=== PATIENT | male | born 1950 | race Caucasian/White ===

== ENCOUNTER 2024-03-31 11:18 | Emergency (ER) | payer MEDICARE, BC | END 2024-03-31 12:10 | disposition home or self-care (01) | LOC: JD.ED 11:18 | DX: R21 Rash and other nonspecific skin eruption (principal) | CPT/HCPCS: 99282 ==

== ENCOUNTER 2024-09-28 08:47 | Day surgery (SDC) | payer MEDICARE, BC ==
[~2024-09-28 08:47] MED LIST: Sodium Chloride 0.9% 10 ML Syringe FLUSH PRN; Sodium Chloride 0.9% 10 ML Syringe FLUSH SCH
[2024-09-28] MEDS: Lactated Ringers 1,000 ML IV SCH (09:15)
[2024-09-28] MEDS ORDERED: propofoL 500 MG/50 ML 50 ML ONE (09:20)
[2024-09-28] MEDS ORDERED: Lidocaine 1% 2 ML ONE (09:20)
[2024-09-28] MEDS ORDERED: Ondansetron 4 MG/2 ML SDV ONE (09:20)
[2024-09-28] MEDS ORDERED: fentaNYL 100 MCG/2 ML SDV ONE (09:20)
== END 2024-09-28 12:30 | disposition home or self-care (01) ==
LOC: JD.SDS 08:47
PROVIDERS: ATTEND Surgery
DX: D50.9 Iron deficiency anemia, unspecified (principal); D12.2 Benign neoplasm of ascending colon; K20.90 Esophagitis, unspecified without bleeding; K31.89 Other diseases of stomach and duodenum; K44.9 Diaphragmatic hernia without obstruction or gangrene; J44.9 Chronic obstructive pulmonary disease, unspecified; Z79.899 Other long term (current) drug therapy
CPT/HCPCS: 43239; 45380; J2003; J2405; J2704; J3010; J7120; 00813; 99100

== ENCOUNTER 2025-03-20 11:43 | Emergency (ER) | payer MEDICARE, BC | END 2025-03-20 12:34 | disposition home or self-care (01) | LOC: JD.ED 11:43 | DX: S81.812A Laceration without foreign body, left lower leg, initial encounter (principal); J44.9 Chronic obstructive pulmonary disease, unspecified; Z87.891 Personal history of nicotine dependence; Z79.899 Other long term (current) drug therapy; W20.8XXA Other cause of strike by thrown, projected or falling object, initial encounter | CPT/HCPCS: 99282; 99283 ==

== ENCOUNTER 2025-05-24 08:16 | Day surgery (SDC) | payer MEDICARE, BC ==
[~2025-05-24 08:16] MED LIST changes: +Lactated Ringers 1,000 ML ONE; +Midazolam 1 MG/ML 2 ML SDV ONE; -Sodium Chloride 0.9% 10 ML Syringe FLUSH SCH; +propofoL 500 MG/50 ML 50 ML ONE
[2025-05-24] MEDS: Lactated Ringers 1,000 ML IV SCH (08:40)
[2025-05-24] MEDS ORDERED: fentaNYL 100 MCG/2 ML SDV IVPUSH PRN (08:56)
[2025-05-24] MEDS ORDERED: Ondansetron 4 MG/2 ML SDV IVPUSH PRN (08:56)
[2025-05-24] MEDS ORDERED: Sodium Chloride 0.9% 10 ML Syringe FLUSH SCH (09:00)
[2025-05-24] MEDS ORDERED: ePHEDrine 50 MG/ML SDV ONE (10:00)
[2025-05-24] MEDS: Morphine 8 MG, EPINEPHrine 0.3 MG, Cefuroxime 750 MG, Ketorolac 30 MG, Sodium Chloride ... PRN (10:30)
== END 2025-05-24 14:10 | disposition home or self-care (01) ==
LOC: JD.SDS 08:16
PROVIDERS: ATTEND Orthopaedic Surgery
DX: M17.12 Unilateral primary osteoarthritis, left knee (principal); E78.2 Mixed hyperlipidemia; Z87.891 Personal history of nicotine dependence; Z79.899 Other long term (current) drug therapy
CPT/HCPCS: 0055T; 27447; 64447; 73560; 97110; 97116; 97161; J0169; J0690; J0697; J1885; J2250; J2272; J2704; J3373; J7120; 01402; 99100; C1713; C1776; J3490